=== PATIENT | female | born 1985 | race Caucasian/White ===

== ENCOUNTER 2017-04-04 18:13 | Emergency (ER) | payer OTHER ==
[2017-04-04 18:41] LABS: BILIRUBIN, URINE NEG (NEG); GLUCOSE,URINE NEG (NEG); KETONE, URINE TRACE mg/dL (NEG); NITRITE,URINE NEG (NEG); URINE LEUKOCYTE ESTERASE NEG (NEG)
[2017-04-04 18:45] LABS: BLOOD, URINE TRACE (NEG)
[2017-04-04 18:59] LABS: URINE COLOR YELLOW (YELLW/STRAW)
[2017-04-04 19:00] LABS: BACTERIA, URINE FEW /hpf; COMMENT (UR) CULT NOT INDICATED; CULTURE IF INDICATED CULT NOT INDICATED; RBC, URINE 0-3 /hpf (0-3); SQUAMOUS EPITHELIAL CELL URINE > 8 /hpf (0-5); WBC, URINE 0-2 /hpf (0-5)
[2017-04-04] MEDS: KETOROLAC TROMETHAMINE 60 MG/2 ML (IM) VIAL IM (20:01)
[2017-04-04] MEDS: ONDANSETRON ODT 4 MG TAB PO (20:52)
== END 2017-04-04 21:03 | disposition home or self-care (01) ==
LOC: PHED 21:03
DX: N83.202 Unspecified ovarian cyst, left side (principal); Z90.721 Acquired absence of ovaries, unilateral
CPT/HCPCS: 74176; 81001; 84703

== ENCOUNTER → 2017-04-21 | Outpatient (CLI) | payer OTHER ==
[~2017-04-21] MED LIST: MAGN400T2 PO; MULT1TAB46 PO; NORG1TAB28 PO; TRAM50 PO; ZOFR4TAB3 SL
[2017-04-21 13:51] LABS: HEMATOCRIT 42.1 % (35.0-46.0); HEMOGLOBIN 14.7 GM/DL (11.6-15.3); MEAN CELL VOLUME 95.5 FL (80.0-100.0); MEAN CORPUSCULAR HEMOGLOBIN 33.4 PG (27.0-34.0); MEAN CORPUSCULAR HGB CONC 34.9 % (32.0-36.0); MEAN PLATELET VOLUME 8.6 FL (7.0-11.0); PLATELET COUNT 314 TH/MM3 (150-450); RED BLOOD COUNT 4.41 MIL/MM3 (4.00-5.30); RED CELL DISTRIBUTION WIDTH 12.4 % (11.6-17.2); WHITE BLOOD COUNT 5.8 TH/MM3 (4.0-11.0)
[2017-04-21 14:11] LABS: BICARBONATE 30.8 MEQ/L (21.0-32.0); BLOOD UREA NITROGEN 12 MG/DL (7-18); CALCIUM 9.2 MG/DL (8.5-10.1); CHLORIDE 104 MEQ/L (98-107); CREATININE 0.82 MG/DL (0.50-1.00); GLOMERULAR FILTRATION RATE 81 ML/MIN (>89); GLUCOSE,FASTING 70 MG/DL (74-99); SODIUM (NA) 140 MEQ/L (136-145)
== END ==
LOC: CPRE 12:24
PROVIDERS: ATTEND Obstetrics & Gynecology
DX: Z01.812 Encounter for preprocedural laboratory examination (principal); N94.10 Unspecified dyspareunia; N83.202 Unspecified ovarian cyst, left side; R10.2 Pelvic and perineal pain
CPT/HCPCS: 36415; 80048; 84703; 85027

== ENCOUNTER → 2017-04-29 | Day surgery (SDC) | payer OTHER ==
[~2017-04-29] VITALS: Ht 157.5 cm; Wt 60.5 kg
[~2017-04-29] MED LIST changes: +*MEPERIDINE 25 MG INJ VIAL PERIprocedural Use ONLY ONE; +ACETAMINOPHEN 1000 MG/100 ML 100 ML IV ONE; +CHLORHEXIDINE GLUCONATE 2 % 1 PACK (2 CLOTHS) TOPICAL PRN; +DEXAMETHASONE SOD PHOS 4 MG/ML VIAL IV ONE; +DO NOT ADM ANY ANTICOAGULANT DRUGS PRN; +GLYCOPYRROLATE 1 MG/5 ML SYRINGE IV PUSH ONE; +HYDROmorphone HCL PF 2 MG/ML VIAL IV ONE; +HYDROmorphone HCL PF 2 MG/ML VIAL ONE; +KETOROLAC TROMETHAMINE 30 MG/ML (IVP) VIAL IV PUSH ONE; +LACTATED RINGER'S 1000 ML INJ 1,000 ML IV ONE; +LACTATED RINGER'S 1000 ML IV PRN; +LIDOCAINE HCL 1% PF 5 ML SYRINGE OTHER ONE; +METOPROLOL TARTRATE 25 MG TAB PO PRN; +MIDAZOLAM HCL 2 MG/2 ML VIAL ONE; +NEOSTIGMINE 5 MG/5 ML SYRINGE IV PUSH ONE; +ONDANSETRON HCL 4 MG/2 ML VIAL IV ONE; +PHENYLEPH/NS 1000 MCG/10 ML SYR IV ONE; +POVIDONE IODINE 5% (ANTISEPSIS KIT) 4 APPLICATIONS EACH NARE PRN; +PROMETHAZINE INJ 25 MG/ML VIAL ONE; +PROPOFOL 200 MG/20 ML AMP IV ONE; +ROCURONIUM INJ 50 MG/5 ML SYRINGE IV PUSH ONE; +SODIUM CHLORID 0.9% 500 ML IV PRN; -ZOFR4TAB3 SL; +fentaNYL CITRATE 250 MCG/5 ML AMP ONE
[2017-04-29 17:32] VITALS: BP 99/59; PULSE 92; RESP 18; TEMP 97.7; O2SAT 100
--- NOTE | 2017-05-01 12:20 | MP ---
cc: AUDRA PICHARDO DATE OF SURGERY: 04/29/2017 PREOPERATIVE DIAGNOSIS: 1. Chronic pelvic pain. 2. Left ovarian cyst. 3. History of right salpingo-oophorectomy. POSTOPERATIVE DIAGNOSIS 1. Chronic pelvic pain. 2. Left ovarian cyst. 3. History of right salpingo-oophorectomy. 4. Thick adhesions to the uterus, to the anterior abdominal wall. PROCEDURE: D&C, hysteroscopic exam, laparoscopic exam with lysis of adhesions and placement of Intercede, ovarian cystectomy and reconstruction of the ovary. FINDINGS: Examination under anesthesia revealed a nulliparous cervix, hysteroscopic exam reveals a normal endometrial cavity with no polyps or submucous myomas. Both ostia were clearly seen. The laparoscopic exam revealed a normal uterus with a thick band of adhesions along the anterior abdominal wall to the fundus of the uterus. The right ovary and fallopian tube were absent. The left fallopian tube was normal in length and caliber. The left ovary had a 4 x 4 x 3 cm ovarian cyst with clear fluid. The posterior cul-de-sac was normal. The anterior cul-de-sac was normal. The upper abdomen looked normal from the GI tract. The gallbladder looked normal. It looked like there was an extra portion of liver on the right lobe but looked healthy. COMPLICATIONS: None. COUNTS: Correct. ESTIMATED BLOOD LOSS: 25 cc. FLUIDS: Crystalloid DISPOSITION: The patient tolerated the procedure well and went to the Recovery Room in good condition. PROCEDURE IN DETAIL: The patient was taken to the operating room identified by name band and verbally, and given a general anesthetic. She was carefully placed in dorsolithotomy position, prepped and draped in the usual sterile manner. Examination under anesthesia was carried out with the above findings. A speculum was placed into the vagina. The anterior lip of the cervix was grasped with single-tooth tenaculum. Cervix was serially dilated without difficulty and hysteroscope was inserted. The entire endometrial cavity was carefully inspected, both ostia were seen. There is no submucous myomas or polyps seen and a gentle sharp curettage followed that. A Hulka clamp was then placed and attention was turned to the umbilical area. Small subumbilical incision was made and the 5-mm trocar was used to enter the abdomen and pneumoperitoneum was created with 3 liters of CO2. Inferior lateral to the umbilicus on the right a 5 mm port was placed under direct vision and a 10-mm port on the left side. The entire pelvis and abdomen were carefully inspected due the above findings and we began with the ovarian cyst. Using the harmonic scalpel we punctured the cyst and removed a good portion of it. The remainder of the cyst wall was then cauterized with the Kleppinger forceps and the ovary was then reconstructed with a 3-0 Vicryl in a running fashion with excellent results. Once this had been accomplished, attention was turned to a thick band of adhesions from the anterior abdominal wall to the uterus. This was taken down with the harmonic scalpel 90% [address] way. We were getting very close to the bladder and the small bleeders were coagulated with the Kleppinger forceps. A large amount of irrigation was used at this point. Hemostasis was excellent and a piece of Interceed was placed over that raw area. We did not need the Interceed on the ovary since the closure was absolutely perfect and we could not attach the ovary to the pelvic sidewall like we had planned because the uterine ovarian ligament was quite short and that would have put quite a bit of tension on it. I believe her pelvic pain was from the thick adhesions to the anterior abdominal wall, not from the ovarian cyst. At this point all surgical sites were inspected, everything was dry, air was released and the fascia was repaired with 2-0 Vicryl. The skin was repaired with a 4-0 Vicryl in subcuticular manner. She tolerated the procedure well and went to the recovery room in good condition. R. MD WALESKA Neff/ALVERTO /4:39 PM /12:07 PM
== END | disposition home or self-care (01) ==
LOC: HSDC 12:24
PROVIDERS: ATTEND Obstetrics & Gynecology
DX: N83.202 Unspecified ovarian cyst, left side (principal); K66.0 Peritoneal adhesions (postprocedural) (postinfection); R10.2 Pelvic and perineal pain; G89.29 Other chronic pain
CPT/HCPCS: 00840; 58558; 58662; 88305; 88307; C1765; J0131; J1100; J1885; J2175; J2250; J2370; J2405; J2550; J2710; J3010; J7120; 88304; J1170